=== PATIENT | female | born 1970 | race Hispanic/Latino ===

== ENCOUNTER 2023-03-09 10:43 | Emergency (ER) | payer OTHER ==
[~2023-03-09] VITALS: Ht 160 cm; Wt 63.5 kg
[2023-03-09] MEDS ORDERED: KETOROLAC TROMETHAMINE 30 MG/ML VIAL IM STA (12:12)
[2023-03-09] MEDS ORDERED: LIDOCAINE 4% PATCH TP STA (12:12)
[2023-03-09] MEDS ORDERED: DEXAMETHASONE 4 MG TAB PO STA (12:12)
[2023-03-09] MEDS ORDERED: ACETAMINOPHEN 325 MG TAB PO ONE (12:15)
[2023-03-09 12:39] LABS: CLARITY,URINE SL CLOUDY (CLEAR); COLOR,URINE YELLOW (YELLOW)
[2023-03-09 12:40] LABS: BACTERIA,URINE MODERATE /HPF; EPITHELIAL CELLS,URINE MODERATE /LPF; KETONES,URINE NEGATIVE (NEGATIVE); LEUKOCYTE ESTERASE ,URINE NEGATIVE (NEGATIVE); NITRITE,URINE NEGATIVE (NEGATIVE); PROTEIN,URINE DIPSTICK NEGATIVE (NEGATIVE); RBC,URINE 0-5 /HPF (0-5); URINE UROBILINOGEN 0.2 mg/dL (0.2 - 1)
[2023-03-09] MEDS ORDERED: ULTRAM 50MG50 MG PO (14:55)
[2023-03-09] MEDS ORDERED: CEPHALEXIN500 MG PO (14:55)
== END 2023-03-09 15:12 | disposition home or self-care (01) ==
LOC: ER 10:50
DX: M54.50 Low back pain, unspecified (principal); N39.0 Urinary tract infection, site not specified; R10.9 Unspecified abdominal pain; E11.9 Type 2 diabetes mellitus without complications; E03.9 Hypothyroidism, unspecified
CPT/HCPCS: 72131; 74176; 81001; 99283; J1885; J8540

== ENCOUNTER 2025-01-17 21:29 | Emergency (ER) | payer OTHER ==
[~2025-01-17] VITALS: Ht 160 cm; Wt 61.2 kg
[~2025-01-17 21:29] MED LIST: CEPHALEXIN500 MG PO; ULTRAM 50MG50 MG PO
[2025-01-17] MEDS ORDERED: DIPHTH,PERTUSS(ACELL),TET VAC 0.5 ML SYRINGE IM ONE (23:45)
[2025-01-18 00:37] VITALS: PULSE 77; RESP 16; TEMP 98.4; O2SAT 100
[2025-01-18] MEDS ORDERED: CEPHALEXIN500 MG PO (00:40)
[2025-01-18] MEDS: TETANUS/DIPHTHERIA TOX ADULT 0.5 ML SYR IM ONE (00:51)
[2025-01-18] MEDS: LIDOCAINE 1% W/EPINEPHRINE 20 ML VIAL INJ ONE (00:52)
== END 2025-01-18 01:05 | disposition home or self-care (01) ==
LOC: ER 01-18 00:02
DX: S01.81XA Laceration without foreign body of other part of head, initial encounter (principal); S60.031A Contusion of right middle finger without damage to nail, initial encounter; R42 Dizziness and giddiness; W10.8XXA Fall (on) (from) other stairs and steps, initial encounter; Y93.01 Activity, walking, marching and hiking; Y92.89 Other specified places as the place of occurrence of the external cause; E11.9 Type 2 diabetes mellitus without complications; E03.9 Hypothyroidism, unspecified
CPT/HCPCS: 70450; 72125; 90471; 99283